=== PATIENT | male | born 1980 | race American Indian/Alaskan Native ===

== ENCOUNTER 2019-06-22 03:22 | Emergency (ER) | payer OTHER ==
[2019-06-22] MEDS ORDERED: oxyCODONE /ACETAMINOPHEN 5-325MG TAB PO ONE (05:12)
[2019-06-22] MEDS ORDERED: oxyCODONE /ACETAMINOPHEN 5-325MG TAB ONE (05:16)
[2019-06-22] MEDS ORDERED: TETANUS,DIPH,PERTUSS(ACELL) VACCINE 0.5 ML SYRINGE IM ONE (05:17)
[2019-06-22] MEDS ORDERED: LIDOCAINE-MPF (1%) 10 MG/1 ML VIAL 5 ML INFILTRATI ONE (05:17)
--- NOTE | 2019-06-22 06:03 | Emergency Department Report ---
- General Chief Complaint: Wound/Laceration Stated Complaint: RIGHT EYE INJURY Time Seen by Provider: 06/22/19 04:52 Source: patient Mode of arrival: Ambulatory Limitations: No Limitations - History of Present Illness Initial Comments: patient is a 38-year-old male presents emergency room with complaints of a laceration above his right eye that occurred just prior to arrival. Patient states that he was in bed sleeping and had a to go to the bathroom. He states that when he got out of bed he tripped on something and hit the edge of the wooden bedpost. He denies any loss of consciousness, vomiting, vision changes, numbness, weakness, any other symptoms. He is able to recall all events of the incident. He has been ambulatory without difficulty. He states he has a past medical history of diabetes. He denies any allergies medications. He is unsure when his last tetanus immunization was. - Related Data Previous Rx's Medication Instructions Recorded Last Taken Type Ibuprofen [Motrin] 800 mg PO Q8HR #30 tablet 04/10/15 Unknown Rx traMADoL [Ultram 50 MG tab] 50 mg PO Q6HR PRN #20 tablet 04/10/15 Unknown Rx Acetaminophen/Codeine [Tylenol 1 tab PO Q6H PRN #7 tab 06/22/19 Unknown Rx /Codeine # 3 tab] Allergies Allergy/AdvReac Type Severity Reaction Status Date / Time No Known Allergies Allergy Verified 06/22/19 05:16 ED Review of Systems ROS: Stated complaint: RIGHT EYE INJURY Other details as noted in HPI Comment: All other systems reviewed and negative ED Past Medical Hx - Past Medical History Previous Medical History?: Yes Hx Diabetes: Yes - Surgical History Past Surgical History?: No - Social History Smoking Status: Current Every Day Smoker Substance Use Type: Alcohol, Marijuana - Medications Home Medications: Home Medications Medication Instructions Recorded Confirmed Last Taken Type Ibuprofen [Motrin] 800 mg PO Q8HR #30 tablet 04/10/15 Unknown Rx traMADoL [Ultram 50 MG tab] 50 mg PO Q6HR PRN #20 tablet 04/10/15 Unknown Rx Acetaminophen/Codeine [Tylenol 1 tab PO Q6H PRN #7 tab 06/22/19 Unknown Rx /Codeine # 3 tab] ED Physical Exam - General Limitations: No Limitations General appearance: alert, in no apparent distress - Head Head exam: Present: normocephalic - Eye Eye exam: Present: PERRL, EOMI, other (subconjunctival hemorrhage present to the right eye, edema present to the right upper eyelid, no bony TTP of the right orbit, no deformity, no signs of entrapment) - ENT ENT exam: Present: mucous membranes moist - Neurological Exam Neurological exam: Present: alert, oriented X3, CN II-XII intact, normal gait. Absent: motor sensory deficit - Psychiatric Psychiatric exam: Present: normal affect, normal mood - Skin Skin exam: Present: warm, dry, other (1.5 cm laceration superior to the right upper eyelid, involves the subcutaneous fat, no muscle involvement, pt is able to move the eyebrows, no foreign body) ED Course Vital Signs 06/22/19 06/22/19 03:28 06:51 Temperature 98.6 F 98 F Pulse Rate 91 H 78 Respiratory 18 18 Rate Blood Pressure 148/88 Blood Pressure 122/68 [Left] O2 Sat by Pulse 98 100 Oximetry - Laceration /Wound Repair Right Upper Face Wound Location: face (just superior to the right upper eyelid) Wound Length (cm): 1 (1.5 cm total) Wound's Depth, Shape: superficial, irregular Wound Explored: clean Irrigated w/ Saline (ccs): 50 Betadine Prep?: Yes Anesthesia: 1% Lidocaine Volume Anesthetic (ccs): 4 Wound Debrided: moderate Wound Repaired With: sutures Suture Size/Type: 4:0, proline Number of Sutures: 3 Layer Closure?: No Sterile Dressing Applied?: Yes Progress: Wound irrigated with saline and thoroughly scrubbed with Betadine, 4 mL of 1% lidocaine without epinephrine used as anesthetic, Betadine prep again, sterile drapes applied, sterile gloves worn, 3 sutures placed for skin closure with 4-0 Prolene, patient tolerated well, bleeding resolved, no complications. ED Medical Decision Making - Medical Decision Making patient is a 38-year-old male presents emergency room with complaints of a laceration above his right eye that occurred just prior to arrival. Patient states that he was in bed sleeping and had a to go to the bathroom. He states that when he got out of bed he tripped on something and hit the edge of the wooden bedpost. He denies any loss of consciousness, vomiting, vision changes, numbness, weakness, any other symptoms. He is able to recall all events of the incident. He has been ambulatory without difficulty. He states he has a past medical history of diabetes. He denies any allergies medications. He is unsure when his last tetanus immunization was. VSS. on exam:subconjunctival hemorrhage present to the right eye, edema present to the right upper eyelid, no bony TTP of the right orbit, no deformity, no signs of entrapment, 1.5 cm laceration superior to the right upper eyelid, involves the subcutaneous fat, no muscle involvement, pt is able to move the eyebrows, no foreign body. [place] CT head score is 0, no need for emergent imaging of the head. Wound irrigated with saline and thoroughly scrubbed with Betadine and repaired per procedure note. pts pain treated while in the ED as he did not drive and improved. pt given tetanus immunization. pt given prescription for tylenol with codeine. advised pt please take medication as prescribed as needed. Do not drive or operate heavy machinery while taking pain medication. Please keep area clean, dry, covered. May wash with soap and water and immediately dry. No hot tub, pool, soaking in water. Follow up with a primary care doctor in the next 2-3 days. Sutures will need to be removed in 5-7 days. Return to the emergency room for any new or worsening symptoms including but not limited to worsening headache, vision changes, vomiting, loss of consciousness, acting abnormally, signs of infection. Critical care attestation.: If time is entered above; I have spent that time in minutes in the direct care of this critically ill patient, excluding procedure time. ED Disposition Clinical Impression: Laceration, Subconjunctival hemorrhage of right eye Minor head injury Qualifiers: Encounter type: initial encounter Qualified Code(s): S09.90XA - Unspecified injury of head, initial encounter Disposition: DC-01 TO HOME OR SELFCARE Is pt being admited?: No Does the pt Need Aspirin: No Condition: Stable Instructions: Suture Care (ED), Laceration (ED), Subconjunctival Hemorrhage (ED), Minor Head Injury (ED) Additional Instructions: please take medication as prescribed as needed. Do not drive or operate heavy machinery while taking pain medication. Please keep area clean, dry, covered. May wash with soap and water and immediately dry. No hot tub, pool, soaking in water. Follow up with a primary care doctor in the next 2-3 days. Sutures will need to be removed in 5-7 days. Return to the emergency room for any new or worsening symptoms including but not limited to worsening headache, vision changes, vomiting, loss of consciousness, acting abnormally, signs of infection. Prescriptions: Acetaminophen/Codeine [Tylenol /Codeine # 3 tab] 1 tab PO Q6H PRN #7 tab PRN Reason: Pain , Severe (7-10) Referrals: PRIMARY CARE,MD [Primary Care Provider] - 2-3 Days Forms: Work/School Release Form(ED) Time of Disposition: 06:04 Print Language: BRITISH
[2019-06-22 06:53] VITALS: BP 122/68
== END 2019-06-22 06:53 | disposition home or self-care (01) ==
LOC: ED 03:22
DX: S01.111A Laceration without foreign body of right eyelid and periocular area, initial encounter (principal); H11.31 Conjunctival hemorrhage, right eye; F17.200 Nicotine dependence, unspecified, uncomplicated; F12.10 Cannabis abuse, uncomplicated; W01.0XXA Fall on same level from slipping, tripping and stumbling without subsequent striking against object, initial encounter; Y93.89 Activity, other specified; Y92.89 Other specified places as the place of occurrence of the external cause; Y99.8 Other external cause status
CPT/HCPCS: 90471; 90715; 99282

== ENCOUNTER 2019-07-12 19:27 | Emergency (ER) | payer OTHER ==
--- NOTE | 2019-07-12 20:12 | Event Note ---
ED Screening Note Time: 20:11 ED Screening Note: hx DM boil on buttocks This initial assessment/diagnostic orders/clinical plan/treatment(s) is/are subject to change based on patients health status, clinical progression and re- assessment by fellow clinical providers in the ED. Further treatment and workup at subsequent clinical providers discretion. Patient/guardian urged not to elope from the ED as their condition may be serious if not clinically assessed and managed. Initial orders include: acc for eval
[2019-07-12] MEDS ORDERED: CLINDAMYCIN 300 MG CAP PO ONE (23:47)
[2019-07-12] MEDS ORDERED: LIDOCAINE-MPF (1%) 10 MG/1 ML VIAL 5 ML INFILTRATI ONE (23:47)
[2019-07-12] MEDS ORDERED: ONDANSETRON 4 MG ODT TAB PO ONE (23:47)
[2019-07-12] MEDS ORDERED: HYDROmorphone 1 MG/1 ML INJ IM ONE (23:47)
[2019-07-12] MEDS ORDERED: SULFAMETHOXAZOLE/TRIMETHOPRIM 800/160MG DS TAB PO ONE (23:47)
--- NOTE | 2019-07-13 02:16 | Emergency Department Report ---
ED General Adult HPI - General Chief complaint: Skin/Abscess/Foreign Body Stated complaint: BOIL ON BUTTOCK Time Seen by Provider: 07/12/19 20:11 Source: patient Mode of arrival: Ambulatory Limitations: No Limitations - History of Present Illness Initial comments: Patient is a 38-year-old [place] male with no past medical history who presented to the ED continue acute onset assistance of the painful swollen erythematous maculopapular rash on the left perineal area for the last 2 weeks, worse in the last 2 days. Patient denies fever, chills, nausea, vomiting, dizziness, chest pain or shortness of breath, testicular pain, scrotal pain, traumatic injury or penile discharge. Patient's distal tenderness worsened in the last 2 days and that he is unable to sit down or lay still because of pain. MD Complaint: Painful swollen left perineal rash -: Sudden, week(s) (2) Location: genitals (left perineum) Radiation: non-radiation Severity scale (0 -10): 8 Quality: aching, sharp Consistency: constant Improves with: none Worsens with: movement Associated Symptoms: denies other symptoms, rash (erythematous maculopapular rash on left perineum). denies: confusion, chest pain, cough, diaphoresis, fever/chills, headaches, loss of appetite, malaise, nausea/vomiting, shortness of breath, weakness, other Treatments Prior to Arrival: none - Related Data Previous Rx's Medication Instructions Recorded Last Taken Type Ibuprofen [Motrin] 800 mg PO Q8HR #30 tablet 04/10/15 Unknown Rx traMADoL [Ultram 50 MG tab] 50 mg PO Q6HR PRN #20 tablet 04/10/15 Unknown Rx Acetaminophen/Codeine [Tylenol 1 tab PO Q6H PRN #7 tab 06/22/19 Unknown Rx /Codeine # 3 tab] Acetaminophen/Codeine [Tylenol 1 tab PO Q6H PRN #12 tab 07/13/19 Unknown Rx /Codeine # 3 tab] Clindamycin [Clindamycin CAP] 300 mg PO Q8HR #60 capsule 07/13/19 Unknown Rx Ibuprofen [Motrin] 800 mg PO Q8HR PRN #24 tablet 07/13/19 Unknown Rx Ondansetron [Zofran Odt] 4 mg PO Q6HR PRN #15 tab.rapdis 07/13/19 Unknown Rx Sulfamethoxazole/Trimethoprim 1 each PO Q12H #20 tablet 07/13/19 Unknown Rx [Bactrim DS TAB] Allergies Allergy/AdvReac Type Severity Reaction Status Date / Time No Known Allergies Allergy Verified 06/22/19 05:16 ED Review of Systems ROS: Stated complaint: BOIL ON BUTTOCK Other details as noted in HPI Constitutional: denies: chills, fever Eyes: denies: eye pain, eye discharge, vision change ENT: denies: ear pain, throat pain Respiratory: denies: cough, shortness of breath, wheezing Cardiovascular: denies: chest pain, palpitations Endocrine: no symptoms reported Gastrointestinal: denies: abdominal pain, nausea, diarrhea Genitourinary: denies: urgency, dysuria Musculoskeletal: denies: back pain, joint swelling, arthralgia Skin: rash (erythematous maculopapular rash on the left perineum), change in color. denies: lesions Neurological: denies: headache, weakness, paresthesias Psychiatric: denies: anxiety, depression Hematological/Lymphatic: denies: easy bleeding, easy bruising ED Past Medical Hx - Past Medical History Previous Medical History?: Yes Hx Diabetes: Yes - Surgical History Past Surgical History?: No - Social History Smoking Status: Never Smoker Substance Use Type: None - Medications Home Medications: Home Medications Medication Instructions Recorded Confirmed Last Taken Type Ibuprofen [Motrin] 800 mg PO Q8HR #30 tablet 04/10/15 Unknown Rx traMADoL [Ultram 50 MG tab] 50 mg PO Q6HR PRN #20 tablet 04/10/15 Unknown Rx Acetaminophen/Codeine [Tylenol 1 tab PO Q6H PRN #7 tab 06/22/19 Unknown Rx /Codeine # 3 tab] Acetaminophen/Codeine [Tylenol 1 tab PO Q6H PRN #12 tab 07/13/19 Unknown Rx /Codeine # 3 tab] Clindamycin [Clindamycin CAP] 300 mg PO Q8HR #60 capsule 07/13/19 Unknown Rx Ibuprofen [Motrin] 800 mg PO Q8HR PRN #24 tablet 07/13/19 Unknown Rx Ondansetron [Zofran Odt] 4 mg PO Q6HR PRN #15 tab.rapdis 07/13/19 Unknown Rx Sulfamethoxazole/Trimethoprim 1 each PO Q12H #20 tablet 07/13/19 Unknown Rx [Bactrim DS TAB] ED Physical Exam - General Limitations: No Limitations General appearance: alert, in no apparent distress - Head Head exam: Present: atraumatic, normocephalic, normal inspection - Eye Eye exam: Present: normal appearance, PERRL, EOMI Pupils: Present: normal accommodation - ENT ENT exam: Present: normal exam, normal orophraynx, mucous membranes moist, TM's normal bilaterally, normal external ear exam - Neck Neck exam: Present: normal inspection, full ROM - Respiratory Respiratory exam: Present: normal lung sounds bilaterally. Absent: respiratory distress, wheezes, rales, rhonchi, chest wall tenderness, accessory muscle use, prolonged expiratory - Cardiovascular Cardiovascular Exam: Present: regular rate, normal rhythm, normal heart sounds. Absent: systolic murmur, diastolic murmur, rubs, gallop - GI/Abdominal GI/Abdominal exam: Present: soft, normal bowel sounds. 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 Absent: tenderness, CVA tenderness (L), muscle spasm, vertebral tenderness - Neurological Exam Neurological exam: Present: alert, oriented X3, CN II-XII intact, normal gait, reflexes normal - Psychiatric Psychiatric exam: Present: normal affect, normal mood - Skin Skin exam: Present: warm, dry, intact, normal color, rash (swollen, severely tender, fluctuant, erythematous maculopapular rash on the left perineum) ED Course Vital Signs 07/12/19 19:34 Temperature 98.4 F Pulse Rate 93 H Respiratory 18 Rate Blood Pressure 142/80 O2 Sat by Pulse 97 Oximetry - I & D Left Perineum Type of Procedure: Simple Site: Left perineum Blade Size: 11 I & D Procedure: betadine prep, sterile drapes applied, sterile dressing applied, gauze wick placed Progress: The site was cleaned with Betadine, and Lidocaine 1% solution used to infiltrate the area for anesthesia. When anesthesia was fully achieved, an incision was made and the purulent discharge expressed from the site. Large amount of greenish yellow malodorous discharge drained from the site. The wound was then debrided extensively with normal saline flushes and therefore loculations were broken. The wound was then packed with iodoform gauze, approximately 20 cm long. The wound was then dressed appropriately with 4 x 4 gauze and Tegaderm. Patient tolerated the procedure well. Patient was then discharged home on antibiotics and pain medications and advised return to ED 2 days for wound recheck and packing removal. ED Medical Decision Making - Medical Decision Making This is a 38-year-old male who presented to the ED with complaint of acute onset persistent severe painful swollen erythematous maculopapular rash on the left perineum for 2 weeks. In the ED, patient is alert and oriented 3 and is not in distress. Patient was treated in the ED and also received antibiotics. The swollen erythematous maculopapular rash was incised and drained protocol and the patient tolerated the procedure well. Patient was sent home on oral antibiotics and pain medications and advised to return to the ED in 2 days for wound recheck and packing removal. Patient was also advised to follow-up with his primary care physician in 7-10 days for reevaluation. Patient was otherwise advised to return to the ED immediately if symptoms get worse. - Differential Diagnosis cellulitis; folliculitis, abscess Critical care attestation.: If time is entered above; I have spent that time in minutes in the direct care of this critically ill patient, excluding procedure time. ED Disposition Clinical Impression: Abscess or cellulitis of perineum Disposition: DC-01 TO HOME OR SELFCARE Is pt being admited?: No Does the pt Need Aspirin: No Condition: Stable Instructions: Cellulitis (ED), Abscess (ED) Additional Instructions: Take medications with food, drink plenty of fluids and follow-up with your primary care physician in 7-10 days for reevaluation. Return to the ED in 2 days for wound recheck and packing removal. Otherwise return to the ED immediately if symptoms get worse. Prescriptions: Sulfamethoxazole/Trimethoprim [Bactrim DS TAB] 1 each PO Q12H #20 tablet Clindamycin [Clindamycin CAP] 300 mg PO Q8HR #60 capsule Ibuprofen [Motrin] 800 mg PO Q8HR PRN #24 tablet PRN Reason: Pain , Severe (7-10) Acetaminophen/Codeine [Tylenol /Codeine # 3 tab] 1 tab PO Q6H PRN #12 tab PRN Reason: Pain , Severe (7-10) Ondansetron [Zofran Odt] 4 mg PO Q6HR PRN #15 tab.rapdis PRN Reason: Nausea Referrals: [facility] [Outside] - 7-10 days Forms: Work/School Release Form(ED) Time of Disposition: 02:16 Print Language: GUYANESE
[2019-07-13 03:26] VITALS: BP 136/80
== END 2019-07-13 03:14 | disposition home or self-care (01) ==
LOC: ED 19:27
DX: L02.215 Cutaneous abscess of perineum (principal); E11.9 Type 2 diabetes mellitus without complications; Z79.899 Other long term (current) drug therapy
CPT/HCPCS: 46050; 96372; 99282; J1170; Q0162

== ENCOUNTER 2019-07-15 06:51 | Emergency (ER) | payer OTHER ==
[2019-07-15 07:02] VITALS: BP 138/79
--- NOTE | 2019-07-15 07:44 | Emergency Department Report ---
Suture/Staple Removal - [facility] Chief Complaint: Laceration/Recheck/Suture Stated Complaint: REMOVE PACKING FROM BOIL Time Seen by Provider: 07/15/19 07:41 When Sutures or Dylan Placed: 3 days Wound Location: left perianal area ED Review of Systems ROS: Stated complaint: REMOVE PACKING FROM BOIL Other details as noted in HPI Constitutional: denies: chills, fever Eyes: denies: eye pain, eye discharge, vision change ENT: denies: ear pain, throat pain Respiratory: denies: cough, shortness of breath, wheezing Cardiovascular: denies: chest pain, palpitations Endocrine: no symptoms reported Gastrointestinal: denies: abdominal pain, nausea, diarrhea Genitourinary: denies: urgency, dysuria Musculoskeletal: denies: back pain, joint swelling, arthralgia Skin: denies: rash, lesions Neurological: denies: headache, weakness, paresthesias Psychiatric: denies: anxiety, depression Hematological/Lymphatic: denies: easy bleeding, easy bruising ED Past Medical Hx - Past Medical History Previous Medical History?: Yes Hx Diabetes: Yes - Surgical History Past Surgical History?: No - Social History Smoking Status: Never Smoker Substance Use Type: None - Medications Home Medications: Home Medications Medication Instructions Recorded Confirmed Last Taken Type Ibuprofen [Motrin] 800 mg PO Q8HR #30 tablet 04/10/15 Unknown Rx traMADoL [Ultram 50 MG tab] 50 mg PO Q6HR PRN #20 tablet 04/10/15 Unknown Rx Acetaminophen/Codeine [Tylenol 1 tab PO Q6H PRN #7 tab 06/22/19 Unknown Rx /Codeine # 3 tab] Acetaminophen/Codeine [Tylenol 1 tab PO Q6H PRN #12 tab 07/13/19 Unknown Rx /Codeine # 3 tab] Clindamycin [Clindamycin CAP] 300 mg PO Q8HR #60 capsule 07/13/19 Unknown Rx Ibuprofen [Motrin] 800 mg PO Q8HR PRN #24 tablet 07/13/19 Unknown Rx Ondansetron [Zofran Odt] 4 mg PO Q6HR PRN #15 tab.rapdis 07/13/19 Unknown Rx Sulfamethoxazole/Trimethoprim 1 each PO Q12H #20 tablet 07/13/19 Unknown Rx [Bactrim DS TAB] Suture Removal Exam - Exam General: Vital signs noted. No distress. Alert and acting appropriately. Wound: Yes Tenderness, No Pathologic Erythema, No Drainage, No Pus, No Wound Dehiscence Other Systems: All other systems reviewed and are unremarkable. ED Course Vital Signs 07/15/19 06:54 Temperature 98.7 F Pulse Rate 107 H Respiratory 18 Rate Blood Pressure 138/79 O2 Sat by Pulse 97 Oximetry - Reevaluation(s) Reevaluation #1: 07/15/19 07:44 Patient is speaking in full sentences with no signs of distress noted. ED Recheck [facility] - Medical Decision Making 38-year-old male that presents with packing removal. Left perianal packing has been removed and patient told well. No signs of cellulitis, abscess or swelling noted. Patient was educated on proper wound care. He was instructed to continue taking medications as prescribed during previous visit. A sterile dressing has been applied. Patient was also instructed to Follow-up with a primary care doctor in 3-5 days or if symptoms worsen and continue return to emergency room as soon as possible. At time of discharge, the patient does not seem toxic or ill in appearance. No acute signs of distress noted. Patient agrees to discharge treatment plan of care. No further questions noted by the patient. Critical care attestation.: If time is entered above; I have spent that time in minutes in the direct care of this critically ill patient, excluding procedure time. ED Disposition Clinical Impression: Encounter for abscess packing removal Disposition: DC-01 TO HOME OR SELFCARE Is pt being admited?: No Does the pt Need Aspirin: No Condition: Stable Instructions: Acute Wound Care (ED) Additional Instructions: Follow-up with a primary care doctor in 3-5 days or if symptoms worsen and continue return to emergency room as soon as possible. Referrals: QIAN SANTOS MD [Referring] - 3-5 Days JUSTUS KIM MD [Staff Physician] - 3-5 Days [facility] [Outside] - 3-5 Days Forms: Work/School Release Form(ED)
== END 2019-07-15 08:06 | disposition home or self-care (01) ==
LOC: ED 06:51
DX: Z48.02 Encounter for removal of sutures (principal); Z53.21 Procedure and treatment not carried out due to patient leaving prior to being seen by health care provider